=== PATIENT | female | born 1960 ===

== ENCOUNTER 2017-08-12 12:08 | Emergency (ER) | payer OTHER, SELFPAY ==
[2017-08-12 12:08] VITALS: BMI 28.0
[2017-08-12 12:21] VITALS: RESP 20
--- NOTE | 2017-08-12 12:37 | C.PDOC ---
History Of Present Illness 57 yo female come in for evaluation of Left sided lower back/flank pain that is chronic and gradually worse for past few weeks, intermittent radiation to Left posterior thigh. Pt also c/o Right foot pain around heel. Pt admits, similar sx in past with acute exacerbation for past week. Otherwise, pt denies known direct trauma ro injury, fever, chills, recent illness, CP, SOB, abd. pain, N/V , UTI sx, saddle anesthesia, incontinence, denies weakness, sensory or vascular deficits to B/L LEs. Ambulate to Ed for evaluation, not in any apparent distress. Time Seen by Provider: 08/12/17 12:37 Chief Complaint (Nursing): Back Pain History Per: Patient Onset/Duration Of Symptoms: Gradual Past Medical History Reviewed: Historical Data, Nursing Documentation, Vital Signs Vital Signs: Last Vital Signs Temp 98.2 F 08/12/17 12:18 Pulse 85 08/12/17 12:18 Resp 20 08/12/17 12:18 BP 155/98 H 08/12/17 12:18 Pulse Ox 98 08/12/17 12:45 - Medical History PMH: Back Problems, Hypothyroidism Family History: States: Unknown Family Hx - Social History Hx Tobacco Use: No Hx Alcohol Use: No Hx Substance Use: No - Immunization History Hx Tetanus Toxoid Vaccination: Yes Hx Influenza Vaccination: No Hx Pneumococcal Vaccination: No Review Of Systems Except As Marked, All Systems Reviewed And Found Negative. Constitutional: Negative for: Fever, Chills ENT: Negative for: Throat Pain Cardiovascular: Negative for: Chest Pain, Palpitations Respiratory: Negative for: Cough, Shortness of Breath, Wheezing Gastrointestinal: Negative for: Nausea, Vomiting, Abdominal Pain, Diarrhea Genitourinary: Negative for: Dysuria, Frequency, Incontinence Musculoskeletal: Positive for: Back Pain, Foot Pain. Negative for: Neck Pain Skin: Negative for: Rash, Bruising Neurological: Negative for: Weakness, Numbness Physical Exam - Physical Exam Appears: Well, Non-toxic, No Acute Distress Skin: Normal Color, Warm, Dry, No Rash, No Ecchymosis Head: Normacephalic Eye(s): bilateral: PERRL Nose: No Flaring Throat: No Erythema Neck: Trachea Midline, Supple Cardiovascular: Rhythm Regular Respiratory: No Decreased Breath Sounds, No Accessory Muscle Use, No Stridor, No Wheezing Gastrointestinal/Abdominal: Soft, No Tenderness, No Distention, No Guarding Back: No CVA Tenderness, No Vertebral Tenderness, Muscle Spasm (left lumbar paraspinal), Paraspinal Tenderness (Left flank tenderness extend down to Left pumbar paraspinal) Extremity: Normal ROM (B/L LEs), Tenderness (mild over Right heel area. No edema , no erythema.), No Pedal Edema, No Calf Tenderness (B/L), No Deformity, No Swelling Neurological/Psych: Oriented x3, Normal Speech, Normal Motor, Normal Sensation, Normal Reflexes ED Course And Treatment O2 Sat by Pulse Oximetry: 98 Pulse Ox Interpretation: Normal Progress Note: On re-evaluation, pt is afebrile, hemodynamicaly stable. NOn- toxic. Ambulatory in Ed with stable gait. ENT: no acute findings. Abd: benign. Neuorlogicaly intact. UA- normal study. Pt has clinical findings c/w lumbar radiculopathy/sciatica. Pt advised. ref. to f/u with PMD in 2-3 days for re-eval. return to ED if anyw orsening or new changes. Disposition Counseled Patient/Family Regarding: Studies Performed, Diagnosis, Need For Followup, Rx Given - Disposition Disposition: HOME/ ROUTINE Disposition Time: 13:30 Condition: STABLE Additional Instructions: Light duty to lower back take pain medication as prescribed Follow up with PMD, Orthopedist , Director Data in 2-3 days for re-evaluation. return to Ed if any worsening or new changes. Prescriptions: Gabapentin [Neurontin] 300 mg PO HS #10 cap Ibuprofen [Motrin Tab] 600 mg PO BID #20 tab Methocarbamol [Robaxin] 500 mg PO TID #20 tab traMADol [Ultram] 50 mg PO TID #10 tab Instructions: Radiculopathy, Bursitis (DC), Heel Pain (Caused by Plantar Fasciitis) Forms: [employer] ([employer]) Print Language: COMORAN - Clinical Impression Clinical Impression: Lumbar radiculopathy, Calcaneal bursitis
[2017-08-12 13:57] LABS: SQUAMOUS EPITHIAL 2 /hpf (0-5); URINE BACTERIA RARE (<OCC); URINE BILIRUBIN NEGATIVE (NEGATIVE); URINE BLOOD NEGATIVE (NEGATIVE); URINE CLARITY Clear (Clear); URINE COLOR Yellow (YELLOW); URINE GLUCOSE (UA) NORMAL (Normal); URINE LEUKOCYTE ESTERASE NEG Leu/uL (Negative); URINE PROTEIN NEGATIVE (NEGATIVE); URINE UROBILINOGEN NORMAL mg/dL (0.2-1.0)
[2017-08-12 14:15] VITALS: BP 148/84; PULSE 78; TEMP 98.4; O2SAT 99
== END 2017-08-12 14:16 | disposition home or self-care (01) ==
LOC: C.ER 12:08
DX: M54.16 Radiculopathy, lumbar region (principal); M77.51 Other enthesopathy of right foot and ankle

== ENCOUNTER 2018-05-30 10:17 | Outpatient (CLI) | payer OTHER | END 2018-05-30 10:18 | disposition home or self-care (01) | LOC: C.LAB 10:17 ==